=== PATIENT | male | born 1950 | race Caucasian/White ===

== ENCOUNTER 2017-01-29 05:41 | Emergency (ER) | payer BC, OTHER ==
[~2017-01-29] VITALS: Ht 180.3 cm; Wt 88.5 kg
[~2017-01-29 05:41] MED LIST: ASPIR-TRIN325 M1 PO; CALCITRIOL0.25 MC1 PO; CALCITRIOL0.25 MCG PO; Calcitriol PO; FISH OIL 1,0001 EA10 PO; FLOMAX0.4 MG PO; LEVOTHYROXINE125 MCG PO; Levothroid,Synthroid PO; NO FLUSH NIACI1 EACH PO; PLAVIX75 MG PO; RAPAFLO8 MG PO; Rocaltrol PO; SIMVASTATIN40 MG PO; SYNTHROID125 MCG PO; SYNTHROID300 MCG PO; TOPROL XL50 MG PO; TUMS300 MG PO; TUMS500 MG PO; Tums PO; UNITHROID PO; UNITHROID200 MCG PO; Vicodin,Lortab 5/500 PO; ZESTRIL,PRINIVI10 M1 PO; Zocor PO
[2017-01-29 07:00] LABS: ADD MIUA? NO; BILIRUBIN NEGATIVE; BLOOD NEGATIVE; COLOR STRAW ((YELLOW)); GLUCOSE (STRIP) NEGATIVE; KETONES NEGATIVE; LEUKOCYTES NEGATIVE; NITRITE NEGATIVE; PROTEIN (STRIP) NEGATIVE; SPECIFIC GRAVITY 1.008 (1.000-1.030); UCUL ADDED? NO; UROBILINOGEN 0.2 MG/DL (0.2-1.0)
[2017-01-29 08:29] VITALS: BP 137/80
== END 2017-01-29 08:37 | disposition home or self-care (01) ==
LOC: EME 05:41
PROVIDERS: Nurse Practitioner Family
DX: R33.9 Retention of urine, unspecified (principal); I25.2 Old myocardial infarction; I10 Essential (primary) hypertension; F17.200 Nicotine dependence, unspecified, uncomplicated; Z85.850 Personal history of malignant neoplasm of thyroid
CPT/HCPCS: 81003; 99281; 99285

== ENCOUNTER 2017-01-30 09:32 | Emergency (ER) | payer BC, OTHER ==
[~2017-01-30] VITALS: Ht 180.3 cm; Wt 87.7 kg
[2017-01-30 10:02] VITALS: BP 163/87
== END 2017-01-30 10:40 | disposition left against medical advice (07) ==
LOC: EME 09:32
DX: Z48.03 Encounter for change or removal of drains (principal); Z46.6 Encounter for fitting and adjustment of urinary device; Z96.0 Presence of urogenital implants; Z53.21 Procedure and treatment not carried out due to patient leaving prior to being seen by health care provider